=== PATIENT | female | born 2000 | race Caucasian/White ===

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

== ENCOUNTER 2018-03-04 10:59 | Emergency (ER) | payer BC ==
[2018-03-04 11:46] VITALS: BP 113/66
--- NOTE | 2018-03-04 12:22 | UC ---
Eye Complaint HPI - HPI Summary HPI Summary: PT STATES ROUSED WITH EYES RED AND IRRITATED PLUS CRUSTED SHUT. NO CONTACT USE. NO VISUAL LOSS BUT IS BLIND L EYE SINCE . ADMITS TO HEAD COLD PAST FEW DAYS. NO INJURY OR CONTACT USE. - History of Current Complaint Chief Complaint: UCEye Stated Complaint: DRAINING, SWOLLEN, SORE EYES Time Seen by Provider: 03/04/18 12:16 Hx Obtained From: Patient Hx Last Menstrual Period: Depo-Provera Onset/Duration: Gradual Onset Timing: Constant Pain Intensity: 5 Aggravating Factor(s): Nothing, Eye Drops Associated Signs And Symptoms: Positive: Drainage (Purulent) - YELLOW, Vision Impairment Left - CHRONIC - Risk Factors Penetrating Injury Risk Factor: Negative Acute Glaucoma Risk Factors: Negative Optic Artery Occlusion Risk Factors: Negative - Allergies/Home Medications Allergies/Adverse Reactions: Allergies Allergy/AdvReac Type Severity Reaction Status Date / Time No Known Allergies Allergy Verified 03/04/18 11:41 PMH/Surg Hx/FS Hx/Imm Hx - Additional Past Medical History Additional PMH: BLIND LEFT EYE - Surgical History Surgical History: None - Family History Known Family History: Negative: Respiratory Disease - Social History Occupation: Student Lives: With Family Alcohol Use: Occasionally Substance Use Type: None Smoking Status (MU): Never Smoked Tobacco - Immunization History Most Recent Influenza Vaccination: 2017 Vaccination Up to Date: Yes Review of Systems Constitutional: Negative Skin: Negative Eyes: Drainage, Eye Redness ENT: Negative Respiratory: Negative Cardiovascular: Negative Gastrointestinal: Negative Genitourinary: Negative Motor: Negative Neurovascular: Negative Musculoskeletal: Negative Neurological: Negative Psychological: Negative Is Patient Immunocompromised?: No All Other Systems Reviewed And Are Negative: Yes Physical Exam Triage Information Reviewed: Yes Appearance: Well-Appearing Vital Signs: Initial Vital Signs Temp 98.5 F 03/04/18 11:40 Pulse 80 03/04/18 11:40 Resp 16 03/04/18 11:40 BP 113/66 03/04/18 11:40 Pulse Ox 99 03/04/18 11:40 Eyes: Positive: Other: - No periorbital edema or erythema. Lids everted and no FB's. AC clear x2. PERRL, EOMI. Conjunctiva mildly ionjected and yellow exudates to each medial canthus. No auricular adenopathy. ENT: Positive: Pharynx normal, TMs normal. Negative: Nasal congestion, Nasal drainage Neck: Positive: Supple, Nontender, No Lymphadenopathy Respiratory: Positive: Lungs clear, Normal breath sounds Cardiovascular: Positive: RRR, No Murmur Abdomen Description: Positive: Nontender, No Organomegaly, Soft. Negative: Distended, Guarding Bowel Sounds: Positive: Present Musculoskeletal: Positive: ROM Intact Neurological: Positive: Alert Psychological: Positive: Age Appropriate Behavior Skin Exam: Normal Eye Complaint Course/Dx - Course Course Of Treatment: no concern fro orbital cellulitis. hx supports uri and viral pink eye. given the exudate on exam and crusted shut there is a secodary bacterial infection as weel thus will polytrim. - Differential Dx/Diagnosis Provider Diagnoses: Conjunctivitis Discharge - Sign-Out/Discharge Documenting (check all that apply): Discharge - Discharge Plan Condition: Stable Disposition: HOME Prescriptions: Polymyx/Trimethoprim OPTH* [Polytrim OPHTH*] 2 drop BOTH EYES Q3H 7 Days #1 btl Patient Education Materials: Conjunctivitis (ED) Referrals: Ariana Beauchamp MD [Primary Care Provider] - 5 Days - Billing Disposition and Condition Condition: STABLE Disposition: HOME
== END 2018-03-04 12:32 | disposition home or self-care (01) ==
LOC: UCCORT 10:59
DX: H10.9 Unspecified conjunctivitis (principal)
CPT/HCPCS: 99212; G0463

== ENCOUNTER 2019-03-11 12:46 | Emergency (ER) | payer BC, OTHER ==
[2019-03-11 13:37] VITALS: BP 109/77
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
== END 2019-03-11 15:10 | disposition home or self-care (01) ==
LOC: UCCORT 12:46
DX: S00.81XA Abrasion of other part of head, initial encounter (principal); W03.XXXA Other fall on same level due to collision with another person, initial encounter; R68.84 Jaw pain
CPT/HCPCS: 70486; 99211; G0463